=== PATIENT | female | born 1990 | race African-American/Black ===

== ENCOUNTER 2017-05-27 18:08 | Emergency (ER) | payer OTHER ==
[~2017-05-27] VITALS: Ht 170.2 cm; Wt 54.4 kg
[2017-05-27] MEDS ORDERED: ARTIFICIAL TEAR15 M1 OPHTHALMIC (19:13)
== END 2017-05-27 19:23 | disposition home or self-care (01) ==
LOC: ER 18:08
DX: H57.8 Other specified disorders of eye and adnexa (principal); Z71.1 Person with feared health complaint in whom no diagnosis is made; F17.210 Nicotine dependence, cigarettes, uncomplicated; Z88.0 Allergy status to penicillin; Z88.1 Allergy status to other antibiotic agents

== ENCOUNTER 2017-10-07 19:42 | Emergency (ER) | payer OTHER ==
[~2017-10-07] VITALS: Ht 167.6 cm; Wt 52.6 kg
[~2017-10-07 19:42] MED LIST: ARTIFICIAL TEAR15 M1 OPHTHALMIC
[2017-10-07 19:43] VITALS: BP 129/85
[2017-10-07] MEDS ORDERED: ONDANSETRON HCL4 M2 PO (19:48)
[2017-10-07] MEDS ORDERED: REGLAN 10 MG TA10 MG PO (19:55)
== END 2017-10-07 20:36 | disposition home or self-care (01) ==
LOC: ER 19:42
DX: O26.891 Other specified pregnancy related conditions, first trimester (principal); Z3A.01 Less than 8 weeks gestation of pregnancy; R11.2 Nausea with vomiting, unspecified